=== PATIENT | female | born 1940 | race Caucasian/White ===

== ENCOUNTER 2018-06-05 00:32 | Observation (INO) | payer MEDICARE, OTHER, MEDICAID ==
[2018-06-05 01:42] LABS: ADD MAN DIFF? NO
[2018-06-05 01:45] LABS: ABNORMAL IP MESSAGE 1; BASOPHIL # 0.1 10^3/ul (0.0-0.1); BASOPHILS % 1.2 % (0.0-2.0); EOSINOPHILS # 0.3 10^3/ul (0.0-0.5); EOSINOPHILS % 5.2 % (0.0-7.0); HEMATOCRIT 35.7 % (37.0-47.0); HEMOGLOBIN 11.3 g/dl (12.0-16.0); LYMPHOCYTES # 1.6 10^3/ul (0.8-2.9); MEAN CORPUSCULAR HEMOGLOBIN 25.5 pg (29.0-33.0); MEAN CORPUSCULAR HGB CONC 31.7 g/dl (32.0-37.0); MEAN CORPUSCULAR VOLUME 80.4 fl (82.0-101.0); MEAN PLATELET VOLUME 9.4 fl (7.4-10.4); MONOCYTE # 0.5 10^3/ul (0.3-0.9); MONOCYTES % 7.9 % (0.0-11.0); NEUTROPHIL # 3.6 10^3/ul (1.6-7.5); NEUTROPHILS % 59.5 % (39.0-77.0); PLATELET COUNT 231 10^3/UL (140-415); RED BLOOD COUNT 4.44 10^6/ul (4.20-5.40); RED CELL DISTRIBUTION WIDTH 23.3 % (11.5-14.5)
[2018-06-05 01:46] LABS: POSITIVE DIFF @See below
[2018-06-05 02:03] LABS: ANION GAP 12 (5-13); BLOOD UREA NITROGEN 16 mg/dl (7-20); CALCIUM 9.3 mg/dl (8.4-10.2); CARBON DIOXIDE 23 mmol/L (21-31); CHLORIDE 104 mmol/L (97-110); GLUCOSE 95 mg/dl (70-220); SODIUM 139 mmol/L (135-144)
[2018-06-05 02:08] LABS: POTASSIUM 2.8 mmol/L (3.5-5.1)
[2018-06-05 02:15] LABS: TROPONIN-I 0.048 ng/ml (0.000-0.120)
[2018-06-05] MEDS: POTASSIUM CHLORIDE 100 ML IVPB ×2 (02:19→06:28)
[2018-06-05] MEDS ORDERED: ACETAMINOPHEN 325 MG TAB PO (02:30)
[2018-06-05] MEDS ORDERED: ONDANSETRON 4 MG INJ IV (02:30)
[2018-06-05] MEDS ORDERED: DOCUSATE SODIUM 100 MG CAP PO (02:30)
[2018-06-05] MEDS ORDERED: morphine 2 MG INJ IV (02:30)
[2018-06-05] MEDS ORDERED: NITROGLYCERIN (SL) 0.4 MG TAB SL (02:30)
[2018-06-05] MEDS ORDERED: BISACODYL (EC) 5 MG TAB PO (02:30)
[2018-06-05] MEDS ORDERED: NACL 0.9% 3 ML SYG IV (02:30)
[2018-06-05] MEDS: SOD CHLORIDE 0.9% 1,000 ML IV ×3 (03:11→23:08)
[2018-06-05] MEDS ORDERED: HEPARIN 5,000 UNIT/0.5 ML VIAL ×3 (05:55→22:48)
[2018-06-05] MEDS: HEPARIN 5,000 UNIT/1 ML VIAL SC ×3 (06:30→23:22)
[2018-06-05 08:09] LABS: ADD MAN DIFF? NO
[2018-06-05 08:14] LABS: ABNORMAL IP MESSAGE 1; BASOPHIL # 0.1 10^3/ul (0.0-0.1); EOSINOPHILS # 0.3 10^3/ul (0.0-0.5); EOSINOPHILS % 5.9 % (0.0-7.0); HEMATOCRIT 35.8 % (37.0-47.0); HEMOGLOBIN 11.1 g/dl (12.0-16.0); LYMPHOCYTES # 1.5 10^3/ul (0.8-2.9); LYMPHOCYTES % 28.4 % (15.0-51.0); MEAN CORPUSCULAR HEMOGLOBIN 25.1 pg (29.0-33.0); MEAN PLATELET VOLUME 8.9 fl (7.4-10.4); MONOCYTE # 0.4 10^3/ul (0.3-0.9); MONOCYTES % 7.8 % (0.0-11.0); NEUTROPHILS % 56.5 % (39.0-77.0); PLATELET COUNT 208 10^3/UL (140-415); RED BLOOD COUNT 4.42 10^6/ul (4.20-5.40); RED CELL DISTRIBUTION WIDTH 23.4 % (11.5-14.5)
[2018-06-05 08:14] LABS: WHITE BLOOD COUNT 5.2 10^3/ul (4.8-10.8)
[2018-06-05 08:20] LABS: POSITIVE DIFF @See below
[2018-06-05] MEDS: AMLODIPINE 5 MG TAB PO (08:28)
[2018-06-05] MEDS: ASPIRIN 81 MG TAB PO (08:28)
[2018-06-05] MEDS: HYDROCHLOROTHIAZIDE 25 MG TAB PO (08:28)
[2018-06-05] MEDS: METOPROLOL 25 MG TAB PO ×2 (08:29→21:32)
[2018-06-05 08:39] LABS: HEMOGLOBIN A1C 5.6 % (0-5.9)
[2018-06-05 08:42] LABS: CREATINE KINASE 1047 IU/L (23-200)
[2018-06-05 08:43] LABS: ALANINE AMINOTRANSFERASE 33 IU/L (13-69); ALKALINE PHOSPHATASE 37 IU/L (42-121); ANION GAP 10 (5-13); ASPARTATE AMINO TRANSFERASE 52 IU/L (15-46); BILIRUBIN,INDIRECT 0.7 mg/dl (0-1.1); BILIRUBIN,TOTAL 0.7 mg/dl (0.2-1.3); BLOOD UREA NITROGEN 13 mg/dl (7-20); CARBON DIOXIDE 27 mmol/L (21-31); CHLORIDE 104 mmol/L (97-110); CREATININE 1.11 mg/dl (0.44-1.00); GLUCOSE 81 mg/dl (70-220); SODIUM 141 mmol/L (135-144); TOTAL PROTEIN 6.5 g/dl (6.1-8.1)
[2018-06-05 08:43] LABS: MAGNESIUM 2.1 mg/dl (1.7-2.5)
[2018-06-05 08:53] LABS: POTASSIUM 2.7 mmol/L (3.5-5.1)
[2018-06-05 08:56] LABS: CK INDEX 0.5; CK-MB 5.04 ng/ml (0.0-2.4); TROPONIN-I 0.044 ng/ml (0.000-0.120)
[2018-06-05] MEDS: ASPIRIN (EC) 81 MG TAB PO (09:00)
[2018-06-05] MEDS: POTASSIUM CHLORIDE (SR) 20 MEQ TAB PO ×2 (09:53→21:33)
[2018-06-05] MEDS: REGADENOSON 0.4 MG/5 ML SYG (11:55)
[2018-06-05] MEDS: POTASSIUM CHLORIDE 50 ML IVPB ×4 (13:33→21:32)
[2018-06-05 14:42] LABS: CREATINE KINASE 1058 IU/L (23-200)
[2018-06-05 15:03] LABS: CK INDEX 0.5; CK-MB 4.97 ng/ml (0.0-2.4)
[2018-06-05 17:56] LABS: POTASSIUM 4.1 mmol/L (3.5-5.1)
[2018-06-05] MEDS: IBUPROFEN 400 MG TAB PO (21:31)
[2018-06-06] MEDS ORDERED: HEPARIN 5,000 UNIT/0.5 ML VIAL (05:56)
[2018-06-06] MEDS: HEPARIN 5,000 UNIT/1 ML VIAL SC ×2 (06:11→14:00)
[2018-06-06 06:12] LABS: ADD MAN DIFF? NO
[2018-06-06 06:23] LABS: WHITE BLOOD COUNT 6.4 10^3/ul (4.8-10.8)
[2018-06-06 06:23] LABS: ABNORMAL IP MESSAGE 1; BASOPHILS % 0.3 % (0.0-2.0); EOSINOPHILS # 0.3 10^3/ul (0.0-0.5); EOSINOPHILS % 4.7 % (0.0-7.0); HEMATOCRIT 35.1 % (37.0-47.0); LYMPHOCYTES # 1.2 10^3/ul (0.8-2.9); LYMPHOCYTES % 18.3 % (15.0-51.0); MEAN CORPUSCULAR HEMOGLOBIN 26.1 pg (29.0-33.0); MEAN CORPUSCULAR HGB CONC 31.3 g/dl (32.0-37.0); MEAN CORPUSCULAR VOLUME 83.4 fl (82.0-101.0); MEAN PLATELET VOLUME 9.7 fl (7.4-10.4); MONOCYTE # 0.5 10^3/ul (0.3-0.9); MONOCYTES % 8.3 % (0.0-11.0); NEUTROPHIL # 4.4 10^3/ul (1.6-7.5); NEUTROPHILS % 68.1 % (39.0-77.0); PLATELET COUNT 214 10^3/UL (140-415); RED BLOOD COUNT 4.21 10^6/ul (4.20-5.40); RED CELL DISTRIBUTION WIDTH 23.9 % (11.5-14.5)
[2018-06-06 06:26] LABS: POSITIVE DIFF @See below
[2018-06-06 06:59] LABS: PHOSPHORUS 2.9 mg/dl (2.5-4.9)
[2018-06-06 06:59] LABS: ALANINE AMINOTRANSFERASE 32 IU/L (13-69); ALBUMIN 3.7 g/dl (3.3-4.9); ALBUMIN/GLOBULIN RATIO 1.32; ALKALINE PHOSPHATASE 42 IU/L (42-121); ANION GAP 5 (5-13); ASPARTATE AMINO TRANSFERASE 50 IU/L (15-46); BILIRUBIN,INDIRECT 0.7 mg/dl (0-1.1); BILIRUBIN,TOTAL 0.7 mg/dl (0.2-1.3); BLOOD UREA NITROGEN 13 mg/dl (7-20); CALCIUM 8.7 mg/dl (8.4-10.2); CARBON DIOXIDE 24 mmol/L (21-31); CHLORIDE 111 mmol/L (97-110); CREATINE KINASE 976 IU/L (23-200); CREATININE 1.16 mg/dl (0.44-1.00); GLUCOSE 86 mg/dl (70-220); POTASSIUM 4.4 mmol/L (3.5-5.1); SODIUM 140 mmol/L (135-144); TOTAL PROTEIN 6.5 g/dl (6.1-8.1)
[2018-06-06 07:01] LABS: CK INDEX 0.4; CK-MB 4.13 ng/ml (0.0-2.4); TROPONIN-I 0.028 ng/ml (0.000-0.120)
[2018-06-06] MEDS: METOPROLOL 25 MG TAB PO (08:24)
[2018-06-06] MEDS: AMLODIPINE 5 MG TAB PO (08:26)
[2018-06-06] MEDS: ASPIRIN (EC) 81 MG TAB PO (08:26)
[2018-06-06] MEDS: ASPIRIN 81 MG TAB PO (08:26)
[2018-06-06] MEDS: POTASSIUM CHLORIDE (SR) 20 MEQ TAB PO (08:29)
[2018-06-06 12:39] LABS: CREATINE KINASE 1004 IU/L (23-200)
[2018-06-06 12:52] LABS: CK INDEX 0.4; CK-MB 4.51 ng/ml (0.0-2.4); TROPONIN-I 0.013 ng/ml (0.000-0.120)
[2018-06-06] MEDS: SOD CHLORIDE 0.9% 1,000 ML IV (15:47)
== END 2018-06-06 18:49 | disposition home or self-care (01) ==
LOC: E/R 00:32 → 6WM 02:15
DX: R07.89 Other chest pain (principal); M62.82 Rhabdomyolysis; E87.6 Hypokalemia; I10 Essential (primary) hypertension; D50.9 Iron deficiency anemia, unspecified; I25.10 Atherosclerotic heart disease of native coronary artery without angina pectoris; Z95.1 Presence of aortocoronary bypass graft; Z88.0 Allergy status to penicillin; E78.5 Hyperlipidemia, unspecified; Z79.82 Long term (current) use of aspirin
CPT/HCPCS: 36415; 71045; 78452; 80048; 80053; 82550; 82553; 83036; 83735; 84100; 84132; 84443; 84484; 85025; 93005; 93017; 93306; 99285-25; G0378